=== PATIENT | female | born 1985 | race Caucasian/White ===

== ENCOUNTER 2018-01-03 06:24 | Day surgery (SDC) | payer MEDICAID ==
[2018-01-02 09:13] LABS: ADD MAN DIFF? NO
[2018-01-02 09:22] LABS: ADD UMIC YES; UR ASCORBIC ACID NEGATIVE (NEGATIVE); UR BILIRUBIN (Dip) NEGATIVE (NEGATIVE); UR BLOOD (Dip) NEGATIVE (NEGATIVE); UR CLARITY CLEAR (CLEAR); UR COLOR YELLOW (YELLOW); UR GLUCOSE (Dip) NEGATIVE (NEGATIVE); UR KETONES (Dip) NEGATIVE (NEGATIVE); UR LEUKOCYTE ESTERASE (Dip) 1+ Leu/ul (NEGATIVE); UR NITRITE (Dip) NEGATIVE (NEGATIVE); UR RBC 2 /HPF (0-5); UR SPECIFIC GRAVITY (Dip) 1.017 (1.003-1.030); UR SQUAMOUS EPITHELIAL CELL FEW /HPF (FEW); UR TOTAL PROTEIN (Dip) NEGATIVE (NEGATIVE); UR UROBILINOGEN (Dip) NEGATIVE (NEGATIVE); UR WBC 7 /HPF (0-5)
[2018-01-02 09:29] LABS: ABNORMAL IP MESSAGE 1; BASOPHILS % 0.4 % (0.0-2.0); EOSINOPHILS # 0.1 10^3/ul (0.0-0.5); EOSINOPHILS % 1.3 % (0.0-7.0); HEMATOCRIT 38.8 % (37.0-47.0); HEMOGLOBIN 12.7 g/dl (12.0-16.0); LYMPHOCYTES % 27.9 % (15.0-51.0); MEAN CORPUSCULAR HEMOGLOBIN 31.2 pg (29.0-33.0); MEAN CORPUSCULAR HGB CONC 32.7 g/dl (32.0-37.0); MEAN CORPUSCULAR VOLUME 95.3 fl (82.0-101.0); MEAN PLATELET VOLUME 13.4 fl (7.4-10.4); MONOCYTE # 0.4 10^3/ul (0.3-0.9); NEUTROPHIL # 4.6 10^3/ul (1.6-7.5); NEUTROPHILS % 65.1 % (39.0-77.0); PLATELET COUNT 173 10^3/UL (140-415); RED BLOOD COUNT 4.07 10^6/ul (4.20-5.40); RED CELL DISTRIBUTION WIDTH 12.4 % (11.5-14.5)
[2018-01-02 09:34] LABS: POSITIVE DIFF @See below
[2018-01-02 09:44] LABS: ALANINE AMINOTRANSFERASE 34 IU/L (13-69); ALBUMIN/GLOBULIN RATIO 1.14; ALKALINE PHOSPHATASE 101 IU/L (42-121); ANION GAP 13 (8-16); ASPARTATE AMINO TRANSFERASE 23 IU/L (15-46); CARBON DIOXIDE 27 mmol/L (21-31); CHLORIDE 105 mmol/L (97-110); GLUCOSE 109 mg/dl (70-220); TOTAL PROTEIN 7.5 g/dl (6.1-8.1)
[2018-01-02 09:51] LABS: BLOOD UREA NITROGEN 9 mg/dl (7-20); CALCIUM 8.6 mg/dl (8.4-10.2); CREATININE 0.52 mg/dl (0.44-1.00); POTASSIUM 4.5 mmol/L (3.5-5.1); SODIUM 140 mmol/L (135-144)
[2018-01-02 10:13] LABS: INR 0.98; PROTIME 13.1 Sec (11.9-14.9)
[2018-01-02 10:14] LABS: PARTIAL THROMBOPLASTIN TIME 28.7 Sec (25.0-35.0)
[2018-01-02 10:31] LABS: ADD UMIC YES; UR ASCORBIC ACID NEGATIVE (NEGATIVE); UR BILIRUBIN (Dip) NEGATIVE (NEGATIVE); UR BLOOD (Dip) 1+ mg/dL (NEGATIVE); UR CLARITY CLEAR (CLEAR); UR COLOR YELLOW (YELLOW); UR GLUCOSE (Dip) NEGATIVE (NEGATIVE); UR KETONES (Dip) NEGATIVE (NEGATIVE); UR LEUKOCYTE ESTERASE (Dip) 1+ Leu/ul (NEGATIVE); UR NITRITE (Dip) NEGATIVE (NEGATIVE); UR RBC 2 /HPF (0-5); UR SPECIFIC GRAVITY (Dip) 1.018 (1.003-1.030); UR SQUAMOUS EPITHELIAL CELL FEW /HPF (FEW); UR TOTAL PROTEIN (Dip) NEGATIVE (NEGATIVE); UR UROBILINOGEN (Dip) NEGATIVE (NEGATIVE); UR WBC 11 /HPF (0-5)
[2018-01-03] MEDS ORDERED: LIDOCAINE 2% (SDV) 5 ML INJ (07:57)
[2018-01-03] MEDS ORDERED: ROCURONIUM 50 MG INJ (07:57)
[2018-01-03] MEDS ORDERED: PROPOFOL 20 ML (07:57)
[2018-01-03] MEDS ORDERED: MEPERIDINE 100 MG INJ (07:57)
[2018-01-03] MEDS ORDERED: SUCCINYLCHOLINE CHLORIDE 100 MG/5 ML SYG IV (07:57)
[2018-01-03] MEDS ORDERED: GLYCOPYRROLATE 0.4 MG INJ ×3 (07:57→08:44)
[2018-01-03] MEDS ORDERED: NEOSTIGMINE 3 MG/3 ML SYRINGE ×2 (07:57→08:44)
[2018-01-03] MEDS ORDERED: CEFAZOLIN 1 GM INJ (08:17)
[2018-01-03] MEDS ORDERED: METOCLOPRAMIDE 10 MG INJ (08:18)
[2018-01-03] MEDS ORDERED: ONDANSETRON 4 MG INJ (08:18)
[2018-01-03] MEDS: BUPIVACAINE 0.5%/EPI (SDV) 30 ML INJ (08:42)
[2018-01-03] MEDS: LACTATED RINGER'S 1,000 ML IV (08:56)
[2018-01-03] MEDS ORDERED: ACETAMINOPHEN 325 MG TAB PO (09:00)
[2018-01-03] MEDS ORDERED: ONDANSETRON 4 MG INJ IV ×2 (09:00→09:30)
[2018-01-03] MEDS ORDERED: morphine 2 MG INJ IV (09:00)
[2018-01-03] MEDS ORDERED: IBUPROFEN 600 MG TAB PO (09:00)
[2018-01-03] MEDS ORDERED: OXYCODONE/ACETAMINOPHEN (5/325) TAB PO ×4 (09:00→09:30)
[2018-01-03] MEDS ORDERED: METOCLOPRAMIDE 10 MG INJ IV (09:30)
[2018-01-03] MEDS ORDERED: LABETALOL HCL 20MG INJ IV (09:30)
[2018-01-03] MEDS ORDERED: MIDAZOLAM 1 MG/ML 2 ML INJ IV (09:30)
[2018-01-03] MEDS ORDERED: DIPHENHYDRAMINE 50 MG INJ IV (09:30)
[2018-01-03] MEDS ORDERED: HYDROmorphONE (0.2 MG/ML) 10ML SYG IV ×3 (09:30)
[2018-01-03] MEDS ORDERED: hydrALAzine 20 MG INJ IV (09:30)
[2018-01-03] MEDS ORDERED: MEPERIDINE 25 MG INJ IV (09:30)
[2018-01-03] MEDS ORDERED: EPHEDrine SULFATE 50 MG/5 ML SYG IV (09:30)
[2018-01-03] MEDS ORDERED: FENTAnyl 50 MCG/ML VIAL IV ×3 (09:30)
== END 2018-01-03 11:09 | disposition home or self-care (01) ==
LOC: SDS 06:24
DX: Z30.2 Encounter for sterilization (principal); E66.01 Morbid (severe) obesity due to excess calories; Z68.41 Body mass index [BMI] 40.0-44.9, adult
CPT/HCPCS: 58670; 80053; 81001; 84703; 85025; 85610; 85730; 86850; 86900; 86901